=== PATIENT | male | born 2000 | race Caucasian/White ===

== ENCOUNTER 2021-06-03 18:10 | Emergency (ER) | payer BC, SELFPAY ==
--- NOTE | ~2021-06-03 | XR_ITS ---
EXAMINATION: XR chest 1V portable DATE: 06/03/2021 22:07 INDICATION: Fever, fatigue and chills TECHNIQUE: frontal view of the chest was obtained. COMPARISON: None FINDINGS: The lungs are clear with no focal airspace opacities, pulmonary edema, pleural effusion or pneumothor ax. The cardiomediastinal silhouette is normal. Visualized bones and soft tissues are unremarkable. IMPRESSION: 1. Normal chest radiograph. Reviewed, dictated and finalized at location A. IMPRESSION: 1. Normal chest radiograph.
[2021-06-03 18:14] VITALS: BP 138/79; PULSE 137; RESP 20; TEMP 38.5; O2SAT 99
[2021-06-03 18:47] LABS: Basophils Percent Auto 0.4 % (0.2-1.2); Hemoglobin 14.4 g/dL (14.0-18.0); Immature Granulocyte Absolute 0.03 K/mm3 (0.00-0.031); Immature Granulocyte Percent A 0.4 % (0-0.5); Lymphocytes Absolute Auto 0.71 K/mm3 (0.9-3.2); Lymphocytes Percent Auto 8.6 % (18.3-44.2); Mean Corpuscular HGB Conc 35.1 g/dl (32-36); Mean Corpuscular Hemoglobin 30.1 pg (26-34); Mean Corpuscular Volume 85.8 fl (80-100); Mean Platelet Volume 9.9 fl (7.4-10.4); Monocytes Percent Auto 11.5 % (2.6-8.5); Neutrophils Absolute Auto 6.6 K/mm3 (1.3-6.7); Neutrophils Percent Auto 79.1 % (45.5-73.1); Platelet Count Result 209 k/mm3 (150-375); Red Blood Count 4.78 M/mm3 (4.6-6.20); Red Cell Distribution Width 11.5 % (11.5-14.5); White Blood Count 8.3 K/mm3 (4.5-10.0)
[2021-06-03 18:57] LABS: Alanine Aminotransferase 51 U/L (4-50); Albumin Level 5.3 g/dL (3.5-5.1); Alkaline Phosphatase 94 U/L (38-126); Anion Gap 11 mmol/L (8-16); Aspartate Amino Transferase 38 U/L (17-59); Bilirubin,Total 1.2 mg/dL (0.2-1.3); Blood Urea Nitrogen 13 mg/dL (9-20); Calcium 9.8 mg/dL (8.4-10.2); Carbon Dioxide 27 mmol/L (22-30); Chloride 98 mmol/L (98-107); Estimated CRCL calculation 109 ml/min; Estimated Glomerular Filt Rate > 60; Glucose 129 mg/dL (65-110); Lactate Dehydrogenase 458 U/L (313-618); Lipase 38 U/L (23-300); Potassium 4.2 mmol/L (3.4-5.0); Sodium 136 mmol/L (137-145)
[2021-06-03 20:25] VITALS: BP 119/77; PULSE 106; RESP 18; TEMP 39.6; O2SAT 98
--- NOTE | 2021-06-03 22:00 | ED.NAVMDI ---
HPI - Nausea/Vomiting/Diarrhea General Chief complaint: Nausea/Vomiting/Diarrhea Stated complaint: N/V - fever Time Seen by Provider: 06/03/21 21:11 Source: patient Mode of arrival: ambulatory Limitations: no limitations History of Present Illness HPI Narrative: Patient is a 21-year-old male complaining of nausea and vomiting accompanied by fever x3 days. Patient denies any headache, neck pain or stiffness, chest pain, shortness of breath, cough, nasal congestion, abdominal pain, diarrhea, or urinary symptoms. Related Data Allergies Allergy/AdvReac Type Severity Reaction Status Date / Time No Known Allergies Allergy Verified 06/03/21 20:16 Review of Systems Review of Systems: All systems reviewed & are unremarkable except as noted in HPI and below Constitutional: Constitutional: Denies body ache(s), Denies excessive sweating, Denies fatigue, Denies headache(s), Denies lethargy, Denies malaise, Denies weakness and Denies weight loss Eyes: Eyes: Denies blurry vision, Denies change in vision and Denies loss of vision ENT: Denies dizziness, Denies ear discharge, Denies headache(s), Denies lip swelling, Denies epistaxis, Denies nasal congestion, Denies neck pain, Denies throat swelling and Denies tongue swelling Cardiovascular: Cardiovascular: Denies chest pain, Denies chest pain at rest, Denies chest pain with activity, Denies diaphoresis, Denies rapid heart rate, Denies edema, Denies irregular heart rhythm, Denies lightheadedness, Denies palpitations, Denies dyspnea and Denies dyspnea on exertion Respiratory: Respiratory: Denies chest congestion, Denies cough, Denies hemoptysis, Denies dyspnea and Denies dyspnea on exertion Gastrointestinal: Gastrointestinal: Denies abdominal pain, Denies melena, Denies hematochezia, Denies diarrhea and Denies hematemesis Musculoskeletal: Musculoskeletal: Denies abnormal gait, Denies deformity, Denies joint swelling, Denies limited range of motion, Denies neck pain and Denies numbness Neurologic: Denies Abnormal speech present, Denies abnormal gait, Denies confusion, Denies dizziness, Denies headache(s), Denies focal weakness, Denies loss of vision, Denies numbness, Denies Other visual disturbances, Denies Sensory deficit (Neuro) and Denies weakness Psychiatric: Psychiatric: Denies confusion, Denies depression, Denies auditory hallucinations, Denies homicidal ideation and Denies suicidal ideation Endocrine: Endocrine: Denies cold intolerance, Denies excessive sweating, Denies fatigue, Denies heat intolerance and Denies palpitations Hematologic/Lymphatic: Hematologic/Lymphatic: Denies easy bleeding and Denies easy bruising Allergic/Immunologic: Allergic/Immunologic: Denies lip swelling, Denies throat swelling and Denies tongue swelling PMFSH Comments Past medical history: None Family history: Noncontributory Social history: Non-smoker no EtOH or drug use Exam Const: General: cooperative, healthy appearing, comfortable, no acute distress, well developed, alert and awake; No confusion Orientation/consciousness: oriented to person, oriented to place, oriented to time, patient oriented x3 and No confusion Limitations: no limitations HENMT: Head: normal to inspection, normocephalic and atraumatic Ears: hearing grossly normal bilaterally, TM normal on the right and TM normal on the left General nose exam: Normal external nose present, Normal nares present and No nasal discharge present Face and sinus: normal facial exam Mouth: Yes Normal oral and palatal mucosa present, Yes lip normal, Yes tongue normal and Yes oropharynx normal Throat: posterior oropharynx normal, tonsils normal and uvula midline Eyes: General: appearance normal, both eyes and all related structures Pupils: Equal, round and reactive pupils present EOM: EOMs intact bilaterally Neck: Neck: normal visual inspection, full ROM, no lymphadenopathy and no meningeal signs Chest: Chest palpation & inspection: normal inspection of the ch
[2021-06-03] MEDS: ONDANSETRON INJ 4 MG/2 ML VIAL IV PUSH (22:06)
--- NOTE | 2021-06-03 22:07 | PC.NURSE ---
asked pt. for urine sample and was told it was not possible because he hasn't had fluids RN notified.
[2021-06-03] MEDS: ACETAMINOPHEN 325 MG TABLET 650 MG PO (22:09)
[2021-06-03] MEDS: LACTATED RINGERS 1,000 ML 999 ML IV CONT (22:10)
[2021-06-03 22:58] VITALS: BP 111/56; PULSE 98; RESP 14; TEMP 39; O2SAT 97
[2021-06-04 00:08] VITALS: BP 111/55; PULSE 87; RESP 15; O2SAT 97
[2021-06-04] MEDS: SODIUM CHLORIDE 0.9% IV 1,000 ML 999 ML IV CONT (00:08)
[2021-06-04 00:47] LABS: Appearance Urine Clear (Clear); Blood Urine Negative (Negative); Color Urine Amber (Yellow); Glucose Urine UA Negative (Negative); Ketones Urine 1+ mg/dL (Negative); Protein Urine 2+ mg/dL (Negative); Specific Grav Ur 1.028 (1.001-1.035)
[2021-06-04 00:48] LABS: Add Urine Microscopic? YES; Bacteria Urine Trace /hpf; Bilirubin Urine Negative (Negative); Leukocyte Esterase Ur Negative LEU/UL (Negative); Mucus Urine Rare /lpf; Nitrate Urine Negative (Negative); WBC Urine 0-3 /hpf
[2021-06-04 01:33] VITALS: BP 114/73; PULSE 82; RESP 14; O2SAT 96
[2021-06-04 17:06] LABS: SARS-CoV-2 RNA PCR Negative
== END 2021-06-04 01:38 | disposition home or self-care (01) ==
PROVIDERS: Emergency Medicine; Emergency Provider Emergency Medicine
DX: R11.2 Nausea with vomiting, unspecified (principal); R50.9 Fever, unspecified; Z20.822 Contact with and (suspected) exposure to COVID-19
CPT/HCPCS: 36415; 71045; 80053; 81001; 83615; 83690; 85025; 96361; 96374; 99284; A9270; C9803; J2405; J7030; J7120; U0003; U0005